=== PATIENT | male | born 1945 | race American Indian/Alaskan Native ===

== ENCOUNTER 2020-07-19 19:37 | Emergency (ER) | payer MEDICARE ==
--- NOTE | 2020-07-20 06:13 | Emergency Department Report ---
ED General Adult HPI - General Chief complaint: Medical Clearance Stated complaint: COVID SYMP HYPERGLYCEMIS Time Seen by Provider: 07/20/20 06:04 Source: patient Mode of arrival: Ambulatory Limitations: No Limitations - History of Present Illness Initial comments: Patient presents himself without complaint well appearing. Patient's daughter contacted, case discussed, states patient was sent for evaluation of fever yesterday documented at 101. Patient and daughter deny cough, sore throat, abdominal pain, N/V/D. Patient does have multiple COVID-19 exposures. - Related Data Allergies Allergy/AdvReac Type Severity Reaction Status Date / Time No Known Allergies Allergy Unverified 07/19/20 21:11 ED Review of Systems ROS: Stated complaint: COVID SYMP HYPERGLYCEMIS Other details as noted in HPI Comment: All other systems reviewed and negative ED Past Medical Hx - Past Medical History Previous Medical History?: No Hx Dementia: Yes - Surgical History Past Surgical History?: No - Social History Smoking Status: Never Smoker Substance Use Type: None ED Physical Exam - General Limitations: No Limitations General appearance: alert, in no apparent distress - Head Head exam: Present: atraumatic, normocephalic - Eye Eye exam: Present: normal appearance - ENT ENT exam: Present: mucous membranes moist - Neck Neck exam: Present: normal inspection - Respiratory Respiratory exam: Present: normal lung sounds bilaterally. Absent: respiratory distress - Cardiovascular Cardiovascular Exam: Present: regular rate, normal rhythm. Absent: systolic murmur, diastolic murmur, rubs, gallop - GI/Abdominal GI/Abdominal exam: Present: soft, normal bowel sounds - Rectal Rectal exam: Present: deferred - Extremities Exam Extremities exam: Present: normal inspection - Back Exam Back exam: Present: normal inspection - Neurological Exam Neurological exam: Present: alert, oriented X3 - Psychiatric Psychiatric exam: Present: normal affect, normal mood - Skin Skin exam: Present: warm, dry, intact, normal color. Absent: rash ED Course Vital Signs 07/19/20 07/20/20 07/20/20 21:32 06:12 06:14 Temperature 98.8 F 101 F H Pulse Rate 91 H 84 Respiratory 17 16 Rate Blood Pressure 141/70 Blood Pressure 145/73 [Left] O2 Sat by Pulse 94 97 99 Oximetry 07/20/20 07/20/20 07/20/20 06:15 06:30 06:46 Temperature Pulse Rate Respiratory Rate Blood Pressure 145/73 145/73 145/73 Blood Pressure [Left] O2 Sat by Pulse 99 98 98 Oximetry 07/20/20 07/20/20 07/20/20 07:00 07:16 07:30 Temperature Pulse Rate 84 Respiratory 21 Rate Blood Pressure 145/73 145/73 123/69 Blood Pressure [Left] O2 Sat by Pulse 98 99 Oximetry 07/20/20 07/20/20 07/20/20 07:44 07:46 08:00 Temperature 100.4 F H Pulse Rate 85 72 71 Respiratory 18 14 14 Rate Blood Pressure 123/69 123/69 Blood Pressure 123/69 [Left] O2 Sat by Pulse 98 98 Oximetry 07/20/20 07/20/20 07/20/20 08:16 08:30 08:46 Temperature Pulse Rate 70 74 64 Respiratory 14 12 13 Rate Blood Pressure 123/69 123/69 123/69 Blood Pressure [Left] O2 Sat by Pulse 98 98 98 Oximetry 07/20/20 07/20/20 07/20/20 09:00 09:16 09:30 Temperature Pulse Rate 66 66 98 H Respiratory 14 13 15 Rate Blood Pressure 123/69 123/69 123/69 Blood Pressure [Left] O2 Sat by Pulse 98 99 100 Oximetry 07/20/20 07/20/20 07/20/20 09:46 10:00 10:13 Temperature 98.8 F Pulse Rate 66 65 Respiratory 8 L 13 Rate Blood Pressure 123/69 123/69 Blood Pressure [Left] O2 Sat by Pulse 99 99 Oximetry - Reevaluation(s) Reevaluation #1: 07/20/20 10:46 Treated with IVNS and tylenol ED Medical Decision Making - Lab Data Result diagrams: 07/20/20 06:48 07/20/20 06:48 Vital Signs 07/19/20 07/20/20 07/20/20 21:32 06:12 06:14 Temperature 98.8 F 101 F H Pulse Rate 91 H 84 Respiratory 17 16 Rate Blood Pressure 141/70 Blood Pressure 145/73 [Left] O2 Sat by Pulse 94 97 99 Oximetry 07/20/20 07/20/20 07/20/20 06:15 06:30 06:46 Temperature Pulse Rate Respiratory Rate Blood Pressure 145/73 145/73 145/73 Blood Pressure [Left] O2 Sat by Pulse 99 98 98 Oximetry 07/20/20 07/20/20 07/20/20 07:00 07:16 07:30 Temperature Pulse Rate 84 Respiratory 21 Rate Blood Pressure 145/73 145/73 123/69 Blood Pressure [Left] O2 Sat by Pulse 98 99 Oximetry 07/20/20 07/20/20 07/20/20 07:44 07:46 08:00 Temperature 100.4 F H Pulse Rate 85 72 71 Respiratory 18 14 14 Rate Blood Pressure 123/69 123/69 Blood Pressure 123/69 [Left] O2 Sat by Pulse 98 98 Oximetry 07/20/20 07/20/20 07/20/20 08:16 08:30 08:46 Temperature Pulse Rate 70 74 64 Respiratory 14 12 13 Rate Blood Pressure 123/69 123/69 123/69 Blood Pressure [Left] O2 Sat by Pulse 98 98 98 Oximetry 07/20/20 07/20/20 07/20/20 09:00 09:16 09:30 Temperature Pulse Rate 66 66 98 H Respiratory 14 13 15 Rate Blood Pressure 123/69 123/69 123/69 Blood Pressure [Left] O2 Sat by Pulse 98 99 100 Oximetry 07/20/20 07/20/20 07/20/20 09:46 10:00 10:13 Temperature 98.8 F Pulse Rate 66 65 Respiratory 8 L 13 Rate Blood Pressure 123/69 123/69 Blood Pressure [Left] O2 Sat by Pulse 99 99 Oximetry Lab Results 07/20/20 07/20/20 07/20/20 Range/Units 06:48 06:48 06:48 WBC 6.2 (4.5-11.0) K/mm3 RBC 4.39 (3.65-5.03) M/mm3 Hgb 12.5 (11.8-15.2) gm/dl Hct 37.5 (35.5-45.6) % MCV 85 (84-94) fl MCH 29 (28-32) pg MCHC 34 (32-34) % RDW 16.5 H (13.2-15.2) % Plt Count 156 (140-440) K/mm3 [place] % (Auto) [employer] Operator Add Manual Diff Complete Total Counted 100 Seg Neuts % (Manual) 75.0 H (40.0-70.0) % Lymphocytes % (Manual) 15.0 (13.4-35.0) % Monocytes % (Manual) 10.0 H (0.0-7.3) % Nucleated RBC % Not Reportable Seg Neutrophils # Man 4.7 (1.8-7.7) K/mm3 Band Neutrophils # 0.0 K/mm3 Lymphocytes # (Manual) 0.9 L (1.2-5.4) K/mm3 Abs React Lymphs (Man) 0.0 K/mm3 Monocytes # (Manual) 0.6 (0.0-0.8) K/mm3 Eosinophils # (Manual) 0.0 (0.0-0.4) K/mm3 Basophils # (Manual) 0.0 (0.0-0.1) K/mm3 Metamyelocytes # 0.0 K/mm3 Myelocytes # 0.0 K/mm3 Promyelocytes # 0.0 K/mm3 Blast Cells # 0.0 K/mm3 WBC Morphology Not Reportable Hypersegmented Neuts Not Reportable Hyposegmented Neuts Not Reportable Hypogranular Neuts Not Reportable Smudge Cells Not Reportable Toxic Granulation Not Reportable Toxic Vacuolation Few Dohle Bodies Not Reportable Pelger-Huet Anomaly Not Reportable Gala Rods Not Reportable Platelet Estimate Consistent w auto Clumped Platelets Not Reportable Plt Clumps, EDTA Not Reportable Large Platelets Not Reportable Giant Platelets Not Reportable Platelet Satelliting Not Reportable Plt Morphology Comment Not Reportable RBC Morphology Normal Dimorphic RBCs Not Reportable Polychromasia Not Reportable Hypochromasia Not Reportable Poikilocytosis Not Reportable Anisocytosis Not Reportable Microcytosis Not Reportable Macrocytosis Not Reportable Spherocytes Not Reportable Pappenheimer Bodies Not Reportable Sickle Cells Not Reportable Target Cells Not Reportable Tear Drop Cells Not Reportable Ovalocytes Not Reportable Helmet Cells Not Reportable Larios-Knowlton Bodies Not Reportable [place] Rings Not Reportable Maribel Cells Not Reportable Bite Cells Not Reportable Crenated Cell Not Reportable Elliptocytes Not Reportable Acanthocytes (Spur) Not Reportable Rouleaux Not Reportable Hemoglobin C Crystals Not Reportable Schistocytes Not Reportable Malaria parasites Not Reportable Isac Bodies Not Reportable Hem Pathologist Commnt No Sodium 134 L (137-145) mmol/L Potassium 4.0 (3.6-5.0) mmol/L Chloride 99.5 (98-107) mmol/L Carbon Dioxide 27 (22-30) mmol/L Anion Gap 12 mmol/L BUN 14 (9-20) mg/dL Creatinine 1.1 (0.8-1.3) mg/dL Estimated GFR > 60 ml/min BUN/Creatinine Ratio 13 % Glucose 217 H (75-100) mg/dL Lactic Acid 1.80 (0.7-2.0) mmol/L Calcium 9.4 (8.4-10.2) mg/dL Urine Color (Yellow) Urine Turbidity (Clear) Urine pH (5.0-7.0) Ur Specific [place] (1.003-1.030) Urine Protein (Negative) mg/dL Urine Glucose (UA) (Negative) mg/dL Urine Ketones (Negative) mg/dL Urine Blood (Negative) Urine Nitrite (Negative) Urine Bilirubin (Negative) Urine Urobilinogen (<2.0) mg/dL Ur Leukocyte Esterase (Negative) Urine WBC (Auto) (0.0-6.0) /HPF Urine RBC (Auto) (0.0-6.0) /HPF U Epithel Cells (Auto) (0-13.0) /HPF Urine Mucus /HPF 12/16/20 Range/Units 10:03 WBC (4.5-11.0) K/mm3 RBC (3.65-5.03) M/mm3 Hgb (11.8-15.2) gm/dl Hct (35.5-45.6) % MCV (84-94) fl MCH (28-32) pg MCHC (32-34) % RDW (13.2-15.2) % Plt Count (140-440) K/mm3 [place] % (Auto) Add Manual Diff Total Counted Seg Neuts % (Manual) (40.0-70.0) % Lymphocytes % (Manual) (13.4-35.0) % Monocytes % (Manual) (0.0-7.3) % Nucleated RBC % Seg Neutrophils # Man (1.8-7.7) K/mm3 Band Neutrophils # K/mm3 Lymphocytes # (Manual) (1.2-5.4) K/mm3 Abs React Lymphs (Man) K/mm3 Monocytes # (Manual) (0.0-0.8) K/mm3 Eosinophils # (Manual) (0.0-0.4) K/mm3 Basophils # (Manual) (0.0-0.1) K/mm3 Metamyelocytes # K/mm3 Myelocytes # K/mm3 Promyelocytes # K/mm3 Blast Cells # K/mm3 WBC Morphology Hypersegmented Neuts Hyposegmented Neuts Hypogranular Neuts Smudge Cells Toxic Granulation Toxic Vacuolation Dohle Bodies Pelger-Huet Anomaly Gala Rods Platelet Estimate Clumped Platelets Plt Clumps, EDTA Large Platelets Giant Platelets Platelet Satelliting Plt Morphology Comment RBC Morphology Dimorphic RBCs Polychromasia Hypochromasia Poikilocytosis Anisocytosis Microcytosis Macrocytosis Spherocytes Pappenheimer Bodies Sickle Cells Target Cells Tear Drop Cells Ovalocytes Helmet Cells Larios-Knowlton Bodies [place] Rings [place] Cells Bite Cells Crenated Cell Elliptocytes Acanthocytes (Spur) Rouleaux Hemoglobin C Crystals Schistocytes Malaria parasites Isac Bodies Hem Pathologist Commnt Sodium (137-145) mmol/L Potassium (3.6-5.0) mmol/L Chloride (98-107) mmol/L Carbon Dioxide (22-30) mmol/L Anion Gap mmol/L BUN (9-20) mg/dL Creatinine (0.8-1.3) mg/dL Estimated GFR ml/min BUN/Creatinine Ratio % Glucose (75-100) mg/dL Lactic Acid (0.7-2.0) mmol/L Calcium (8.4-10.2) mg/dL Urine Color Yellow (Yellow) Urine Turbidity Clear (Clear) Urine pH 5.0 (5.0-7.0) Ur Specific [place] 1.016 (1.003-1.030) Urine Protein <15 mg/dl (Negative) mg/dL Urine Glucose (UA) >=500 (Negative) mg/dL Urine Ketones Neg (Negative) mg/dL Urine Blood Neg (Negative) Urine Nitrite Neg (Negative) Urine Bilirubin Neg (Negative) Urine Urobilinogen < 2.0 (<2.0) mg/dL Ur Leukocyte Esterase Neg (Negative) Urine WBC (Auto) 1.0 (0.0-6.0) /HPF Urine RBC (Auto) 2.0 (0.0-6.0) /HPF U Epithel Cells (Auto) < 1.0 (0-13.0) /HPF Urine Mucus Few /HPF - Radiology Data Radiology results: report reviewed negative per radiology Critical care attestation.: If time is entered above; I have spent that time in minutes in the direct care of this critically ill patient, excluding procedure time. ED Disposition Clinical Impression: Fever Disposition: DC-01 TO HOME OR SELFCARE Is pt being admited?: No Condition: Stable Instructions: Fever, Adult Additional Instructions: Follow-up with primary care doctor in 1 to 2 days for reevaluation. Please note your influenza and COVID-19 tests are still pending. Return to the emergency department for worsening symptoms. Referrals: PRIMARY CARE, [Primary Care Provider] - 3-5 Days
[2020-07-20] MEDS ORDERED: ACETAMINOPHEN 325 MG TAB PO ONE (06:24)
--- NOTE | 2020-07-20 07:08 | XRay Report ---
CHEST 1 VIEW, 07/20/2020 5:54 AM CLINICAL INFORMATION/INDICATION: Fever COMPARISON: None. FINDINGS: SUPPORT DEVICES: None. HEART: The cardiac silhouette is normal in size. LUNGS/PLEURA: The lungs are clear of focal airspace disease or significant pleural effusion. ADDITIONAL FINDINGS: No additional acute findings. IMPRESSION: 1. No evidence of acute cardiopulmonary process. Signer Name: Rosi Montana MD Signed: 07/20/2020 7:03 AM Workstation Name: [id number]
[2020-07-20 07:09] LABS: Hematocrit 37.5 % (35.5-45.6); Hemoglobin 12.5 gm/dl (11.8-15.2); Mean Corpuscular HGB Conc 34 % (32-34); Mean Corpuscular Volume 85 fl (84-94); Platelet Count 156 K/mm3 (140-440); Red Blood Count 4.39 M/mm3 (3.65-5.03); Red Cell Distribution Width 16.5 % (13.2-15.2)
[2020-07-20 07:25] LABS: BUN/Creatinine Ratio 13; Blood Urea Nitrogen 14 mg/dL (9-20); Calcium 9.4 mg/dL (8.4-10.2); Hemolysis Index 3
[2020-07-20 07:46] VITALS: BP 123/69
[2020-07-20] MEDS ORDERED: SODIUM CHLORIDE 0.9% 1000 ML 1,000 ML IV ONE (08:51)
[2020-07-20 09:14] LABS: RBC Morphology Normal; Total Cells Counted 100
[2020-07-20 09:15] LABS: Platelet Estimate Consistent w Auto; Toxic Vacuolation Few
[2020-07-20 10:13] LABS: Bilirubin,Urine NEG (Negative); Blood,Urine NEG (Negative); Color,Urine Yellow (Yellow); Mucus,Urine FEW /HPF; Protein,Urine <15 mg/dL mg/dL (Negative); Urobilinogen,Urine < 2.0 mg/dL (<2.0)
== END 2020-07-20 14:08 | disposition home or self-care (01) ==
LOC: ED 19:37
DX: R50.9 Fever, unspecified (principal); F03.90 Unspecified dementia, unspecified severity, without behavioral disturbance, psychotic disturbance, mood disturbance, and anxiety
CPT/HCPCS: 36415; 71045; 80048; 81001; 82140; 85007; 85025; 87040; 96360; 99284; J7030